=== PATIENT | male | born 1965 | race Caucasian/White ===

== ENCOUNTER 2019-08-17 09:30 | Emergency (ER) | payer OTHER ==
[~2019-08-17] VITALS: Ht 172.7 cm; Wt 74.8 kg
[2019-08-17 09:46] VITALS: Ht 172.7 cm; Wt 74.8 kg
[2019-08-17 11:24] LABS: PLATELET COUNT 312 x10^3mcL (130-400)
[2019-08-17 11:30] LABS: BILIRUBIN TOTAL 0.46 mg/dL (0.20-1.00); CALCIUM 8.7 mg/dL (8.5-10.1); CARBON DIOXIDE 31.2 mmol/L (21-32); POTASSIUM SERUM 4.3 mmol/L (3.5-5.1)
[2019-08-17 11:31] LABS: BASOPHIL % 0 % (0-2); RED CELL DISTRIBUTION WIDTH 18.6 % (11.5-14.5)
[2019-08-17 11:38] LABS: ALBUMIN 2.3 g/dL (3.4-5.0); CREATININE SERUM 14.8 mg/dL (0.7-1.3)
[2019-08-17 13:35] VITALS: BP 84/59
== END 2019-08-17 14:29 | disposition home or self-care (01) ==
LOC: ED 09:30
PROVIDERS: Emergency Medicine
DX: R53.1 Weakness (principal); R42 Dizziness and giddiness; H93.19 Tinnitus, unspecified ear; E11.22 Type 2 diabetes mellitus with diabetic chronic kidney disease; N18.6 End stage renal disease; D64.9 Anemia, unspecified; J90 Pleural effusion, not elsewhere classified
CPT/HCPCS: J2405; J8597; Q0092

== ENCOUNTER 2019-09-08 10:11 | Emergency (ER) | payer OTHER ==
[~2019-09-08] VITALS: Ht 175.3 cm; Wt 76.7 kg
[2019-09-08 10:32] VITALS: Ht 175.3 cm; Wt 76.7 kg
[2019-09-08 12:14] VITALS: BP 151/72
== END 2019-09-08 11:14 | disposition home or self-care (01) ==
LOC: ED 10:11
DX: L02.31 Cutaneous abscess of buttock (principal); E11.9 Type 2 diabetes mellitus without complications
CPT/HCPCS: J2001

== ENCOUNTER 2019-09-10 08:31 | Emergency (ER) | payer OTHER | END 2019-09-10 08:35 | disposition left against medical advice (07) | LOC: ED 08:31 | DX: Z53.21 Procedure and treatment not carried out due to patient leaving prior to being seen by health care provider (principal) ==

== ENCOUNTER → 2019-10-18 | Outpatient (CLI) | payer OTHER | END | disposition home or self-care (01) | LOC: RD 09:44 | DX: J90 Pleural effusion, not elsewhere classified (principal) ==